=== PATIENT | male | born 1945 | race Caucasian/White ===

== ENCOUNTER 2016-09-08 17:36 | Emergency (ER) | payer BC ==
[~2016-09-08] VITALS: Ht 175.3 cm; Wt 97.7 kg
[~2016-09-08 17:36] MED LIST: ASPIRIN E.C. 8181 MG PO; CEPHALEXIN500 M1 PO; FOSINOPRIL40 MG PO; IMURAN 50MG TAB50 MG PO; MONOPRIL10 MG PO; OMEPRAZOLE20 MG PO; SIMVASTATIN40 MG PO; VITAMIN B11000 MCG/M SQ; ZANTAC 15OMG150 MG PO; ZOCOR 20MG20 MG PO
[2016-09-08 17:37] VITALS: TEMP 98.1
[2016-09-08 18:22] LABS: PH 5 (5-8); SQUAMOUS EPITHELIAL 0-2 /hpf; URINE APPEARANCE Clear; URINE BACTERIA None Seen /hpf; URINE BILIRUBIN Negative (NEGATIVE); URINE BLOOD Negative (NEGATIVE); URINE COLOR Yellow; URINE GLUCOSE Negative (NEGATIVE); URINE KETONE Negative (NEGATIVE); URINE RBC 0-2 /hpf; URINE WBC 0-2 /hpf
[2016-09-08 19:55] VITALS: BP 131/91; PULSE 86
== END 2016-09-08 19:55 | disposition home or self-care (01) ==
LOC: COL.ER 17:36
PROVIDERS: Emergency Medicine
DX: N43.3 Hydrocele, unspecified (principal); N50.812 Left testicular pain; I10 Essential (primary) hypertension; G70.00 Myasthenia gravis without (acute) exacerbation; F17.210 Nicotine dependence, cigarettes, uncomplicated

== ENCOUNTER 2018-05-16 03:58 | Emergency (ER) | payer BC ==
[~2018-05-16] VITALS: Ht 175.3 cm; Wt 93.2 kg
[~2018-05-16 03:58] MED LIST changes: -MONOPRIL10 MG PO; +MONOPRIL20 MG PO; +VITAMIN B11000 MCG/M IM; -VITAMIN B11000 MCG/M SQ; -ZOCOR 20MG20 MG PO; +ZOCOR 40MG40 MG PO
[2018-05-16 04:06] VITALS: TEMP 98.3
[2018-05-16] MEDS ORDERED: ZANTAC 150MG T150 MG PO (04:15)
[2018-05-16] MEDS ORDERED: NEURONTIN100 MG/CAP PO (04:15)
[2018-05-16] MEDS ORDERED: DOXYCYCLINE 10100 MG PO (04:30)
[2018-05-16] MEDS ORDERED: PROAIR HFA0.09 MG/AC IH (04:35)
[2018-05-16 04:41] LABS: BASO % 0.3 % (0.0-2.0); EOS # 0.1 (0.0-0.7); EOS % 0.5 % (0-4.0); GRAN % 70.7 % (42.2-75.2); HEMOGLOBIN 12.7 g/dl (13.5-18.0); LYMPH # 1.8 (1.2-3.4); LYMPH % 15.8 % (20.0-51.0); MEAN CELL VOLUME 102 fl (80.0-100.0); MEAN CORPUSCULAR HEMOGLOBIN 36 pg (27.0-31.0); MEAN CORPUSCULAR HGB CONC 35 g/dl (33.0-37.0); MEAN PLATELET VOLUME 11.5 fl (7.4-10.4); MONO # 1.4 (0.1-0.6); MONO % 12.4 % (1.7-9.3); PLATELET COUNT 157 K/mm3 (130-400); RED BLOOD COUNT 3.57 M/mm3 (4.20-5.60); REDCELL DISTRIBUTION WIDTH-CV 14.1 % (11.5-14.5)
[2018-05-16 04:44] LABS: HEMATOCRIT 36.3 % (42.0-52.0)
[2018-05-16 04:52] LABS: BILIRUBIN,TOTAL 0.8 mg/dL (0.0-1.0); CREATININE, serum 1.06 mg/dL (0.66-1.25); TOTAL PROTEIN 7.3 gm/dL (6.4-8.2)
[2018-05-16 06:00] VITALS: BP 136/66; PULSE 113
== END 2018-05-16 06:20 | disposition home or self-care (01) ==
LOC: COL.ER 03:58
PROVIDERS: Emergency Medicine
DX: J20.9 Acute bronchitis, unspecified (principal); E78.5 Hyperlipidemia, unspecified; F17.210 Nicotine dependence, cigarettes, uncomplicated
CPT/HCPCS: J7030

== ENCOUNTER 2021-02-09 19:39 | Emergency (ER) | payer BC ==
[~2021-02-09 19:39] MED LIST changes: +DOXYCYCLINE 10100 MG PO; +NEURONTIN100 MG/CAP PO; +PROAIR HFA0.09 MG/AC IH; +ZANTAC 150MG T150 MG PO
== END 2021-02-09 19:47 | disposition left against medical advice (07) ==
LOC: COL.ER 19:39
DX: R52 Pain, unspecified (principal)

== ENCOUNTER 2021-03-24 16:19 | Emergency (ER) | payer BC ==
[~2021-03-24] VITALS: Ht 175.3 cm; Wt 94.5 kg
[2021-03-24 16:28] VITALS: TEMP 98.4
[2021-03-24 16:57] LABS: BASO % 0.5 % (0.0-2.0); EOS # 0.1 K/mm3 (0.0-0.7); EOS % 1.5 % (0.0-4.0); GRAN # 5.1 K/mm3 (1.4-6.5); GRAN % 60.2 % (42.2-75.2); HEMATOCRIT 39.7 % (42.0-52.0); HEMOGLOBIN 13.5 g/dl (13.5-18.0); LYMPH # 2.4 K/mm3 (1.2-3.4); LYMPH % 28.1 % (20.0-51.0); MEAN CELL VOLUME 102 fl (80.0-100.0); MEAN CORPUSCULAR HEMOGLOBIN 35 pg (27-31); MEAN CORPUSCULAR HGB CONC 34 g/dl (33.0-37.0); MEAN PLATELET VOLUME 11.9 fl (7.4-10.4); MONO # 0.8 K/mm3 (0.1-0.6); MONO % 9.5 % (1.7-9.3); PLATELET COUNT 159 K/mm3 (130-400); RED BLOOD COUNT 3.91 M/mm3 (4.20-5.60); REDCELL DISTRIBUTION WIDTH-CV 13.8 % (11.5-14.5)
[2021-03-24 17:17] LABS: ALANINE AMINOTRANSFERASE 11 U/L (0-55); ALBUMIN 3.9 gm/dL (3.4-4.8); ALKALINE PHOSPHATASE 102 U/L (40-150); ANION GAP 10 mmol/L (7-16); AST,SGOT 14 U/L (5-34); BILIRUBIN,TOTAL 0.6 mg/dL (0.2-1.2); BLOOD UREA NITROGEN 17 mg/dL (8-26); CARBON DIOXIDE 22 mmol/L (23-31); CHLORIDE 111 mmol/L (98-107); CREATININE, serum 1.37 mg/dL (0.72-1.25); GLUCOSE 102 mg/dL (70-99); LIPASE 45 U/L (8-78); POTASSIUM 4.2 mmol/L (3.5-4.5); SODIUM 143 mmol/L (136-145); TOTAL PROTEIN 7.1 gm/dL (6.2-8.1)
[2021-03-24 17:29] LABS: TROPONIN-I < 0.010 ng/mL (0.00-0.033)
[2021-03-24] MEDS ORDERED: ZOFRAN ODT4 MG PO (19:03)
[2021-03-24 19:14] VITALS: BP 140/78; PULSE 72
== END 2021-03-24 19:14 | disposition home or self-care (01) ==
LOC: COL.ER 16:19
PROVIDERS: Emergency Medicine
DX: R10.9 Unspecified abdominal pain (principal); R11.2 Nausea with vomiting, unspecified; R19.7 Diarrhea, unspecified; Z20.822 Contact with and (suspected) exposure to COVID-19; E87.2 Acidosis; R79.89 Other specified abnormal findings of blood chemistry; K21.9 Gastro-esophageal reflux disease without esophagitis; I10 Essential (primary) hypertension; E78.5 Hyperlipidemia, unspecified; F17.200 Nicotine dependence, unspecified, uncomplicated; Z79.899 Other long term (current) drug therapy
CPT/HCPCS: J2405; J7030; Q9967

== ENCOUNTER 2021-10-10 22:09 | Emergency (ER) | payer OTHER, BC ==
[~2021-10-10] VITALS: Ht 175.3 cm; Wt 91.8 kg
[~2021-10-10 22:09] MED LIST changes: +ZOFRAN ODT4 MG PO
[2021-10-10 22:47] LABS: BASO % 0.2 % (0.0-2.0); EOS # 0.1 K/mm3 (0.0-0.7); EOS % 1.3 % (0.0-4.0); GRAN # 2.7 K/mm3 (1.4-6.5); GRAN % 42.7 % (42.2-75.2); HEMATOCRIT 40.5 % (42.0-52.0); HEMOGLOBIN 13.7 g/dl (13.5-18.0); LYMPH # 2.4 K/mm3 (1.2-3.4); LYMPH % 38.9 % (20.0-51.0); MEAN CELL VOLUME 101 fl (80.0-100.0); MEAN CORPUSCULAR HEMOGLOBIN 34 pg (27-31); MEAN CORPUSCULAR HGB CONC 34 g/dl (33.0-37.0); MEAN PLATELET VOLUME 12.2 fl (7.4-10.4); MONO % 16.6 % (1.7-9.3); PLATELET COUNT 107 K/mm3 (130-400); RED BLOOD COUNT 4.02 M/mm3 (4.20-5.60)
[2021-10-10 23:06] LABS: ALANINE AMINOTRANSFERASE 23 U/L (0-55); ALBUMIN 3.4 gm/dL (3.4-4.8); ALKALINE PHOSPHATASE 100 U/L (40-150); ANION GAP 14 mmol/L (7-16); AST,SGOT 34 U/L (5-34); BILIRUBIN,TOTAL 0.6 mg/dL (0.2-1.2); BLOOD UREA NITROGEN 11 mg/dL (8-26); CALCIUM 8.6 mg/dL (8.4-10.2); CARBON DIOXIDE 19 mmol/L (23-31); CHLORIDE 109 mmol/L (98-107); CREATININE, serum 1.08 mg/dL (0.72-1.25); GLUCOSE 101 mg/dL (70-99); LIPASE 50 U/L (8-78); POTASSIUM 3.6 mmol/L (3.5-4.5); SODIUM 142 mmol/L (136-145); TOTAL PROTEIN 6.8 gm/dL (6.2-8.1)
[2021-10-10 23:33] LABS: TROPONIN-I < 0.010 ng/mL (0.00-0.033)
[2021-10-11] MEDS ORDERED: CARAFATE 1GM1 G PO (01:24)
[2021-10-11] MEDS ORDERED: NORCO 325 MG-51 TAB PO (01:24)
[2021-10-11 01:50] VITALS: BP 126/78; PULSE 56
== END 2021-10-11 01:50 | disposition home or self-care (01) ==
LOC: COL.ER 22:09
PROVIDERS: Emergency Medicine
DX: J06.9 Acute upper respiratory infection, unspecified (principal); R10.12 Left upper quadrant pain; F17.200 Nicotine dependence, unspecified, uncomplicated; Z90.49 Acquired absence of other specified parts of digestive tract; Z20.822 Contact with and (suspected) exposure to COVID-19
CPT/HCPCS: J1885; J2270; J2405; J3010; J7030; Q9967